=== PATIENT | female | born 1975 | race Hispanic/Latino ===

== ENCOUNTER 2017-06-04 19:55 | Emergency (ER) | payer OTHER, MEDICARE ==
[2017-06-04 20:22] LABS: EOSINOPHILS % (AUTO) 1.3 % (0.0-8.0); HEMATOCRIT 33.3 % (36-48); LYMPHOCYTES % (AUTO) 41.9 % (21.0-51.0); MEAN CORPUSCULAR HEMOGLOBIN 30.2 pg (27.0-33.0); MEAN CORPUSCULAR HGB CONC 34.8 g/dL (32.0-36.0); MEAN CORPUSCULAR VOLUME 86.9 fL (79-99); MONOCYTES % (AUTO) 7.8 % (3.0-13.0); PLATELET COUNT (AUTO) 412 K/uL (130-400); RED BLOOD CELL COUNT(AUTO) 3.83 MIL/uL (4.00-5.50); RED CELL DISTRIBUTION WIDTH 14.4 % (11.0-15.5)
[2017-06-04 20:32] LABS: INR 0.95 (0.85-1.15)
[2017-06-04 20:33] LABS: CREATININE 1.1 mg/dL (0.5-1.5); POTASSIUM 3.9 mmol/L (3.5-5.1)
[2017-06-04 20:57] LABS: ALBUMIN 3.5 g/dL (3.5-5.0); BILIRUBIN,TOTAL 0.3 mg/dL (0.2-1.0); CREATINE KINASE MB 0.5 ng/mL (0.5-3.6); TOTAL PROTEIN, SERUM 8.1 g/dL (6.0-8.3)
[2017-06-04] MEDS ORDERED: KETOROLAC TROMETHAMINE 30MG/ML ONE (21:43)
[2017-06-04] MEDS ORDERED: FUROSEMIDE 10 MG/ML 4ML VIAL ONE (21:43)
== END 2017-06-04 23:21 | disposition home or self-care (01) ==
LOC: EDH 19:55
DX: R07.89 Other chest pain (principal); R53.1 Weakness; R53.83 Other fatigue; Z88.1 Allergy status to other antibiotic agents
CPT/HCPCS: 36415; 71045; 80053; 81025; 82550; 82553; 83874; 84484; 85025; 85610; 85730; 93005; J1885; J1940